=== PATIENT | female | born 1985 | race African-American/Black ===

== ENCOUNTER 2018-10-19 23:10 | Inpatient (IN) | payer OTHER ==
[2018-10-20] MEDS ORDERED: ONDANSETRON 4 MG INJ IV (01:00)
[2018-10-20] MEDS ORDERED: ACETAMINOPHEN 325 MG TAB PO (01:00)
[2018-10-20] MEDS ORDERED: KETOROLAC 30 MG INJ IV (01:00)
[2018-10-20] MEDS ORDERED: NACL 0.9% 3 ML SYG IV (01:00)
[2018-10-20] MEDS ORDERED: GLUCOSE GEL 15 GRAM TUBE BUCCAL (01:30)
[2018-10-20] MEDS ORDERED: GLUCOSE GEL 15 GRAM TUBE PO ×2 (01:30)
[2018-10-20] MEDS ORDERED: DEXTROSE 50% 50 ML SYRINGE IV ×2 (01:30)
[2018-10-20] MEDS ORDERED: GLUCAGON 1 MG INJ IM (01:30)
[2018-10-20] MEDS: ACCU-CHEK XX (02:00)
[2018-10-20] MEDS: PIPER-TAZO 3.375 GM IV (PMX) 100 ML IVPB ×4 (02:16→17:20)
[2018-10-20] MEDS: INSULIN ASPART [NOVOLOG] 3 ML PEN SC ×5 (02:16→17:19)
[2018-10-20] MEDS: DEXTROSE 5%-0.45% NACL 1,000 ML IV ×3 (02:17→15:21)
[2018-10-20 04:56] LABS: OCCULT BLOOD STOOL NEGATIVE (NEGATIVE)
[2018-10-20 06:43] LABS: ADD MAN DIFF? NO
[2018-10-20 06:48] LABS: WHITE BLOOD COUNT 6.4 10^3/ul (4.8-10.8)
[2018-10-20 06:48] LABS: BASOPHIL # 0.1 10^3/ul (0.0-0.1); BASOPHILS % 1.2 % (0.0-2.0); EOSINOPHILS # 0.1 10^3/ul (0.0-0.5); EOSINOPHILS % 2.2 % (0.0-7.0); HEMATOCRIT 39.4 % (37.0-47.0); HEMOGLOBIN 12.3 g/dl (12.0-16.0); LYMPHOCYTES # 1.8 10^3/ul (0.8-2.9); LYMPHOCYTES % 27.2 % (15.0-51.0); MEAN CORPUSCULAR HEMOGLOBIN 27.3 pg (29.0-33.0); MEAN CORPUSCULAR HGB CONC 31.2 g/dl (32.0-37.0); MEAN CORPUSCULAR VOLUME 87.4 fl (82.0-101.0); MEAN PLATELET VOLUME 9.5 fl (7.4-10.4); MONOCYTE # 0.5 10^3/ul (0.3-0.9); MONOCYTES % 7.1 % (0.0-11.0); PLATELET COUNT 359 10^3/UL (140-415); RED BLOOD COUNT 4.51 10^6/ul (4.20-5.40); RED CELL DISTRIBUTION WIDTH 12.9 % (11.5-14.5)
[2018-10-20 07:07] LABS: ALANINE AMINOTRANSFERASE 33 IU/L (13-69); ALBUMIN 3.2 g/dl (3.3-4.9); ALBUMIN/GLOBULIN RATIO 1.06; ALKALINE PHOSPHATASE 50 IU/L (42-121); ANION GAP 6 (5-13); ASPARTATE AMINO TRANSFERASE 24 IU/L (15-46); BLOOD UREA NITROGEN 5 mg/dl (7-20); CALCIUM 8.8 mg/dl (8.4-10.2); CARBON DIOXIDE 31 mmol/L (21-31); CHLORIDE 100 mmol/L (97-110); CREATININE 0.85 mg/dl (0.44-1.00); Estimated GFR > 60 mL/min (>60); GLUCOSE 133 mg/dl (70-220); POTASSIUM 3.5 mmol/L (3.5-5.1); SODIUM 137 mmol/L (135-144); TOTAL PROTEIN 6.2 g/dl (6.1-8.1)
[2018-10-20] MEDS: FAMOTIDINE 20 MG INJ IV ×2 (08:39→22:04)
[2018-10-20] MEDS: Insulin NOVOLOG SS MODERATE Algorithm (SS with meals and bedtime) SC ×2 (17:19→22:02)
[2018-10-20] MEDS ORDERED: INSULIN ASPART [NOVOLOG] 3 ML PEN SC (17:35)
[2018-10-20] MEDS ORDERED: HYDROCHLOROTHIAZIDE PO (21:00)
[2018-10-20] MEDS ORDERED: [UNRECOGNIZED DRUG - OTHER] PO (21:00)
[2018-10-20] MEDS ORDERED: LISINOPRIL PO (21:00)
[2018-10-20] MEDS: AMLODIPINE 10 MG TAB PO (22:03)
[2018-10-20] MEDS: LISINOPRIL 10 MG TAB PO (22:03)
[2018-10-20] MEDS: HYDROCHLOROTHIAZIDE 12.5 MG CAP PO (22:03)
[2018-10-21] MEDS: ACCU-CHEK XX (00:38)
[2018-10-21] MEDS: PIPER-TAZO 3.375 GM IV (PMX) 100 ML IVPB ×3 (00:40→11:32)
[2018-10-21] MEDS: MAGNESIUM HYDROXIDE 30ML CUP PO (00:40)
[2018-10-21] MEDS: DEXTROSE 5%-0.45% NACL 1,000 ML IV (00:40)
[2018-10-21] MEDS: ZOLPIDEM 5 MG TAB PO (01:01)
[2018-10-21 07:06] LABS: ADD MAN DIFF? NO
[2018-10-21 07:12] LABS: BASOPHIL # 0.1 10^3/ul (0.0-0.1); BASOPHILS % 1.5 % (0.0-2.0); EOSINOPHILS # 0.2 10^3/ul (0.0-0.5); HEMATOCRIT 40.7 % (37.0-47.0); HEMOGLOBIN 12.6 g/dl (12.0-16.0); LYMPHOCYTES # 1.7 10^3/ul (0.8-2.9); MEAN CORPUSCULAR HEMOGLOBIN 26.9 pg (29.0-33.0); MEAN CORPUSCULAR VOLUME 86.8 fl (82.0-101.0); MEAN PLATELET VOLUME 9.6 fl (7.4-10.4); MONOCYTE # 0.5 10^3/ul (0.3-0.9); NEUTROPHIL # 2.7 10^3/ul (1.6-7.5); NEUTROPHILS % 52.1 % (39.0-77.0); PLATELET COUNT 362 10^3/UL (140-415); RED BLOOD COUNT 4.69 10^6/ul (4.20-5.40); RED CELL DISTRIBUTION WIDTH 12.9 % (11.5-14.5)
[2018-10-21 07:12] LABS: WHITE BLOOD COUNT 5.2 10^3/ul (4.8-10.8)
[2018-10-21 07:34] LABS: ANION GAP 5 (5-13); BLOOD UREA NITROGEN 4 mg/dl (7-20); CARBON DIOXIDE 31 mmol/L (21-31); CHLORIDE 103 mmol/L (97-110); CREATININE 0.99 mg/dl (0.44-1.00); Estimated GFR > 60 mL/min (>60); GLUCOSE 118 mg/dl (70-220); MAGNESIUM 2.3 mg/dl (1.7-2.5); PHOSPHORUS 3.7 mg/dl (2.5-4.9); POTASSIUM 3.4 mmol/L (3.5-5.1); SODIUM 139 mmol/L (135-144)
[2018-10-21 07:41] LABS: CHOLESTEROL 123 mg/dl (100-200)
[2018-10-21 07:41] LABS: CHOL/HDL RATIO 4.2 RATIO; HDL CHOLESTEROL 29 mg/dl (34-82); LDL CHOLESTEROL,CALCULATED 77 mg/dl; TRIGLYCERIDES 86 mg/dl (0-149)
[2018-10-21 07:52] LABS: FREE THYROXINE INDEX (Calc) 3.03 ug/ml (0.65-3.89); T3 UPTAKE 38.3 % (23.5-40.5); T4 (THYROXINE) 7.9 ug/dl (5.5-11.0)
[2018-10-21] MEDS: FAMOTIDINE 20 MG INJ IV (08:21)
[2018-10-21] MEDS: Insulin NOVOLOG SS MODERATE Algorithm (SS with meals and bedtime) SC ×2 (08:25→11:30)
[2018-10-21] MEDS: INSULIN ASPART [NOVOLOG] 3 ML PEN SC ×2 (08:26→12:11)
[2018-10-21] MEDS: INSULIN GLARGINE [LANTus] (100 UNITS/ML) SYG SC (08:26)
[2018-10-21] MEDS: LISINOPRIL 10 MG TAB PO (08:27)
[2018-10-21] MEDS: HYDROCHLOROTHIAZIDE 12.5 MG CAP PO (08:27)
[2018-10-21 10:35] LABS: HEMOGLOBIN A1C 6.4 % (0-5.9)
[2018-10-21] MEDS: POTASSIUM CHLORIDE (SR) 20 MEQ TAB PO (11:33)
[2018-10-21] MEDS ORDERED: POTASSIUM CHLORIDE (SR) 20 MEQ TAB PO (14:12)
== END 2018-10-21 14:00 | disposition home or self-care (01) | DRG 392 ==
LOC: PP2 23:10
PROVIDERS: Hospitalist
DX: K52.9 Noninfective gastroenteritis and colitis, unspecified (principal); Z68.43 Body mass index [BMI] 50.0-59.9, adult; Z68.42 Body mass index [BMI] 45.0-49.9, adult; E11.8 Type 2 diabetes mellitus with unspecified complications; E66.01 Morbid (severe) obesity due to excess calories; I10 Essential (primary) hypertension; K58.1 Irritable bowel syndrome with constipation; Z79.4 Long term (current) use of insulin; Z87.891 Personal history of nicotine dependence
CPT/HCPCS: 80048; 80053; 80061; 82270; 82962; 83036; 83735; 84100; 84436; 84443; 84479; 85025; 87045; 87081